=== PATIENT | male | born 1960 | race Caucasian/White ===

== ENCOUNTER 2023-02-26 08:05 | Outpatient (AMB) | payer BC, SELFPAY ==
--- NOTE | 2023-02-26 08:32 | MHC.OFFWIV ---
Intake Vital Signs 02/26/23 08:34 Height 5 ft 8 in Weight 225 lb BMI 34.2 BP 130/70 Blood Pressure Location Lt brachial Position Sitting Pulse 84 Pulse Source Pulse Oximeter Temp 97.2 F Pulse Oximetry (%) 96 Oxygen Delivery Method Room Air Intake Visit Reasons: EP bronchial asthma [id number] Intake Note: pt is here today for bronchial asthma started saturday Patient Tobacco Use Status: Never used Tobacco Allergies NSAIDS (Non-Steroidal Anti-Inflamma [NSAIDS] Allergy (Unknown, Verified 02/26/23 08:54) UNKNOWN pseudoephedrine [Sudafed] Adverse Reaction (Unknown, Verified 02/26/23 08:54) panic attack From SUDAFED Allergy (Unknown, Uncoded 02/26/23 08:54) ANGIOEDEMA Medication List - Last Reconciled 02/26/23 by Sage Knight MD azithromycin 500 mg PO DAILY 5 days prednisone 5 tabs daily for 3 days, 4 tabs daily for 3 days, 3 tabs daily for 3 days, 2 tabs daily for 3 days, 1 tab daily for 3 days tiotropium bromide 2.5 mcg/actuation (Spiriva Respimat) 2 puffs inhalation DAILY tiotropium bromide (Spiriva with HandiHaler) 1 cap inhalation DAILY Do you need a note to return to daycare/school/sports/work: No HPI EP bronchial asthma [id number] HPI Details Patient presents for a sick visit. Reporting symptoms of sinus congestion, sore throat and difficulty swallowing. Low-grade fever. No family member is sick. No recent travel. Patient reports symptoms of malaise and fatigue. 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 [facility]LY [facility] Medical History BPH (benign prostatic hyperplasia) Chronic neck and back pain Depression Dermatitis Hyperlipidemia Hypertension Surgical History H/O colonoscopy History of fracture of leg Hx of rotator cuff tear Family History Father Hx of CABG Brain tumor Cancer Mother Brain tumor Cancer Brother Stented coronary artery Brother No problems noted. Brother Obesity Maternal Grandmother Unknown family medical history Social History Patient Tobacco Use Status: Never used Tobacco Physical Exam Vital Signs: Last Vital Signs Temp 97.2 F 02/26/23 08:34 Pulse 84 02/26/23 08:34 BP 130/70 02/26/23 08:34 Pulse Ox 96 02/26/23 08:34 Oxygen Delivery Method Room Air 02/26/23 08:34 BMI result Body Mass Index 34.2 Const General: cooperative and healthy appearing Nutritional Appearance: well nourished Orientation/consciousness: patient oriented x3 Limitations: no limitations HEENT Head: Yes normal to inspection Eyes General: appearance normal, both eyes and all related structures Neck Neck: Yes normal visual inspection Chest Chest palpation & inspection: normal palpation of entire chest wall Resp Other: Scattered wheeze. Effort & Inspection: normal respiratory effort Neuro General: patient oriented x3 Assessment & Plan Assessment & Plan (1) Bronchitis: Code(s): J40 - Bronchitis, not specified as acute or chronic Plan: Antibiotics ordered. Increase fluid intake. Tylenol for aches and pains. If symptoms worsen, follow-up here for a recheck. Coding Level of Care Code Est Pt Level 3 (31878) Diagnoses Bronchitis J40
[2023-02-26 08:34] VITALS: BP 130/70; PULSE 84; TEMP 36.2; O2SAT 96; BMI 34.2
== END 2023-02-26 09:03 | disposition home or self-care (01) ==
PROVIDERS: PCP Internal Medicine; Visit Provider Internal Medicine
DX: J40 Bronchitis, not specified as acute or chronic (principal)
CPT/HCPCS: 99213

== ENCOUNTER 2023-06-24 09:47 | Day surgery (SDC) | payer OTHER, SELFPAY ==
[2023-06-24 10:21] VITALS: BMI 35.6
[2023-06-24 10:24] VITALS: BP 132/81; PULSE 76; RESP 16; TEMP 36.1; O2SAT 92
[2023-06-24] MEDS: Lactated Ringers 1,000 ML 50 ML IVCONT (10:26)
[2023-06-24 10:34] LABS: Glucose, Whole Blood 178 mg/dL (60-115)
--- NOTE | 2023-06-24 11:04 | HO.ANESPROP2 ---
HPI - Anesthesia Eval Consult details Narrative: for colonoscopy FORMERLY [facility], [facility] Active Problems Active Problems: All Active Problems Chronic bronchitis (Acute) Bronchitis (Acute) Past Medical History Medical History Traumatic brain injury Hernia Anxiety PTSD (post-traumatic stress disorder) Fibromyalgia Osteoarthritis Pulmonary emboli Diabetes DEISI (obstructive sleep apnea) Myocardial infarct, old BPH (benign prostatic hyperplasia) Depression Dermatitis Hyperlipidemia Chronic neck and back pain Hypertension Family History Family History Father Hx of CABG Brain tumor Cancer Mother Brain tumor Cancer Brother Stented coronary artery Brother No problems noted. Brother Obesity Maternal Grandmother Unknown family medical history Family history of problems with anesthesia: No Surgical History Surgical History Hx of esophagogastroduodenoscopy Hx of left inguinal hernia repair Hx of umbilical hernia repair Hx of cardiac catheterization Hx of appendectomy H/O colonoscopy Hx of rotator cuff tear History of fracture of leg History of Problems with Anesthesia: No Social History Social History Patient Tobacco Use Status: Former Tobacco user Quit Date: 22 yrs ago Tobacco use type: Cigarette Use of substances other than those prescribed or required for medical reasons: Yes Substance Use Frequency: Occasionally Are you DNR?: No Advance Directives: No Advance Directives Information Provided: Yes Meds Allergies Allergy/AdvReac Type Severity Reaction Status Date / Time NSAIDS (Non-Steroidal Allergy Unknown UNKNOWN Verified 06/24/23 10:10 Anti-Inflamma [NSAIDS] pseudoephedrine [Sudafed] AdvReac Unknown panic Verified 06/24/23 10:10 attack From SUDAFED Allergy Unknown ANGIOEDEMA Uncoded 02/26/23 08:54 Active Medications: Current Medications Lactated Ringer's (Lr) 1,000 mls @ 50 mls/hr IVCONT .Q20H REINA Last Admin: 06/24/23 10:26 Dose: 50 mls/hr Sodium Biphosphate/Sodium Phosphate (Sodium Phosphate,[place]-Dibasic 133 Ml Enema) 133 ml MD ONCE PRN PRN Reason: Poor Colonoscopy Prep Results Home Medications ?Medication ?Instructions ?Recorded ?Confirmed ?Last Taken ?Type Jardiance PO DAILY 06/21/23 06/20/23 History atorvastatin 40 mg PO BEDTIME 06/21/23 06/24/23 Unknown History buprenorphine-naloxone 2 mg PO DAILY 06/21/23 06/24/23 Unknown History buspirone 5 mg PO DAILY PRN Anxiety 06/21/23 06/24/23 Unknown History duloxetine 60 mg PO BID 06/21/23 06/24/23 Unknown History famotidine 20 mg PO BID 06/21/23 06/24/23 Unknown History lisinopril 20 mg PO DAILY 06/21/23 06/24/23 06/24/23 07:30 History metformin 500 mg PO BID 06/21/23 06/24/23 Unknown History propranolol PO DAILY 06/21/23 Unknown History testosterone QWEEK 06/21/23 Unknown History albuterol sulfate 90 mcg/actuation 2 puff inhalation Q4-6H PRN 06/24/23 06/24/23 Unknown History aerosol inhaler Shortness Of Breath Or Wheezing Exam Height,Weight and Vital Signs: Height 5 ft 8 in Weight 106.141 kg Last Vital Signs Temp 97.0 F 06/24/23 10:24 Pulse 76 06/24/23 10:24 Resp 16 06/24/23 10:24 BP 132/81 06/24/23 10:24 Pulse Ox 92 06/24/23 10:24 O2 Del Method Room Air 06/24/23 10:24 Pertinent Lab Results Pertinent Lab Results: Laboratory Tests 06/24/23 10:30 POC Glucose 178 H Airway Mallampati Class: II TM Dist: >3cm Neck ROM: Limited Heart: rrr Lungs: cta Assessment and Plan Assessment Anesthesia Assessment: Anesthesia Plan Discussed and Chart Reviewed Final Anesthetic Review Family History of Problems with Anesthesia: No History of Problems with Anesthesia: No NPO: Yes ASA Class: III Final Preanesthetic Review: No Changes in Pt Med Stat, Meds/Allgs Chart Reviewed, Consent Obtained/Reviewed and Anes Risks/Benef Reviewed Patient Risk: Intermediate Procedure Risk: Low Anesthetic Plan Anesthetic Plan: MAC: Disposition: Standard PACU
--- NOTE | 2023-06-24 11:54 | P.BOP_ITS ---
Brief Operative Note Date of Service: 06/24/23 Pre-op diagnosis: GERD, Screening Post-op diagnosis: other (Gastritis, Hiatal hernia, Diverticulosis) Procedure: EGD with biopsies, Colonoscopy to the cecum Surgeon: Corbin Maharaj MD Anesthesia: MAC Was an Cryptographic Machine Operator used for this Procedure?: No Estimated blood loss (mL): 2.0 Pathology: other (A. Gastric antrum) Condition: stable Disposition: PACU
[2023-06-24 11:55] VITALS: BP 126/77; PULSE 76; RESP 16; TEMP 36.6; O2SAT 100
[2023-06-24 12:10] VITALS: BP 122/71; PULSE 282; RESP 16; TEMP 36.6; O2SAT 97
--- NOTE | 2023-06-24 16:07 | OP_ITS ---
DATE OF SERVICE: 06/24/2023 SURGEON: Corbin Maharaj MD INDICATIONS: The patient presents for evaluation of chronic gastroesophageal reflux and colorectal cancer screening. Full consent has been obtained from him for this, including risks of bleeding and perforation. PREOPERATIVE DIAGNOSIS: POSTOPERATIVE DIAGNOSIS: PROCEDURE PERFORMED: ESTIMATED BLOOD LOSS: COMPLICATIONS: ANESTHESIA: Monitored anesthesia care. ASSISTANTS: SPECIMENS: PREOPERATIVE DIAGNOSES: Colorectal cancer screening and gastroesophageal reflux. POSTOPERATIVE DIAGNOSES: Colorectal cancer screening, gastroesophageal reflux, small hiatal hernia, mild gastritis, diverticulosis, and internal hemorrhoids. PROCEDURES PERFORMED: Esophagogastroduodenoscopy with biopsies, and colonoscopy to the cecum. DESCRIPTION OF PROCEDURE: The patient was placed in the left lateral decubitus position. The Olympus video gastroscope was passed in the posterior oropharynx and upper esophagus under direct vision. The scope was passed slowly into the distal esophagus. The gastroesophageal junction appeared at 35 cm. There was no sign of any esophagitis, [place] esophagus, nor mass. The scope entered the stomach. There was a small hiatal hernia. The scope was advanced to pylorus and the duodenum was cannulated to the descending portion. The duodenum including the bulb appeared normal without mass or ulceration. The scope was withdrawn back to the stomach. The gastric antrum had some mild areas of a chronic gastritis with some erythema, edema, and some minimal friability. There was no erosions or ulceration. There was good peristalsis. The scope was retroflexed visualizing the proximal stomach carefully, which appeared normal, without any sign of mass or ulceration. The scope was straightened. Biopsies were obtained from the gastric antrum. The scope was withdrawn back in the esophagus. The esophageal mucosa appeared normal. The scope was withdrawn from the patient. He was turned around for the colonoscopy. The digital rectal exam revealed no abnormalities. The Olympus video pediatric colonoscope was then entered into the rectum and advanced easily to the cecum. Once in the cecum, I did identify a normal-appearing cecal pouch with appendiceal orifice and a normal-appearing ileocecal valve. The entire cecum was well visualized and appeared normal. There was transillumination of light deep in the right lower quadrant. The scope was slowly withdrawn assessing all mucosal surfaces carefully. Preparation was excellent. I did not visualize any sign of polyps, colitis, nor angiodysplasia. There was a mild amount of sigmoid diverticulosis. In the rectum, the scope was retroflexed visualizing internal hemorrhoids, but no other pathology. The rectal mucosa appeared normal. The scope was straightened and withdrawn from the patient. He tolerated both procedures well and was returned to the recovery area in stable condition. IMPRESSION: 1. Small hiatal hernia. 2. Mild gastritis. 3. Diverticulosis. 4. Internal hemorrhoids. PLAN: The results of the biopsy will be checked. He was advised to continue his current regimen of famotidine twice a day as he does report that is working well for his reflux. He should have a repeat colonoscopy for screening in 10 years. He would otherwise see me again on a p.r.n. basis. MD PRATEEK Richards/CURTIS / [phone]
== END 2023-06-24 11:40 | disposition home or self-care (01) ==
PROVIDERS: Visit Provider Internal Medicine
PROC: (CPT 45378; principal; 2023-06-24 12:10)
DX: Z12.11 Encounter for screening for malignant neoplasm of colon (principal); K57.30 Diverticulosis of large intestine without perforation or abscess without bleeding; K64.8 Other hemorrhoids; K21.9 Gastro-esophageal reflux disease without esophagitis; K29.60 Other gastritis without bleeding; K44.9 Diaphragmatic hernia without obstruction or gangrene; I25.2 Old myocardial infarction; I10 Essential (primary) hypertension; G47.33 Obstructive sleep apnea (adult) (pediatric); J45.909 Unspecified asthma, uncomplicated; M79.7 Fibromyalgia; E11.9 Type 2 diabetes mellitus without complications; F41.9 Anxiety disorder, unspecified; F43.10 Post-traumatic stress disorder, unspecified; Z79.84 Long term (current) use of oral hypoglycemic drugs; Z79.899 Other long term (current) drug therapy; Z88.8 Allergy status to other drugs, medicaments and biological substances; Z87.891 Personal history of nicotine dependence
CPT/HCPCS: 45378; 43239; 82947; 88305; 88313; 88342; J2405; J2704; J3010

== ENCOUNTER 2023-07-30 08:12 | Outpatient (AMB) | payer BC, SELFPAY ==
[2023-07-30 08:46] VITALS: BP 122/72; PULSE 90; O2SAT 93
--- NOTE | 2023-07-30 08:46 | AM.OFFWIN_ITS ---
Intake Vital Signs 07/30/23 08:46 Height 5 ft 8 in BP 122/72 Blood Pressure Location Rt brachial Position Sitting Pulse 90 Pulse Source Pulse Oximeter Pulse Oximetry (%) 93 Oxygen Delivery Method Room Air Intake Visit Reasons: EP lft elbow pain loss of hand strength Intake Note: pt is here for left elbow pain with loss of hand strength for 1 month Patient Tobacco Use Status: Former Tobacco user Quit Date: 22 yrs ago Allergies NSAIDS (Non-Steroidal Anti-Inflamma [NSAIDS] Allergy (Unknown, Verified 07/30/23 08:47) UNKNOWN pseudoephedrine [Sudafed] Adverse Reaction (Unknown, Verified 07/30/23 08:47) panic attack From SUDAFED Allergy (Unknown, Uncoded 02/26/23 08:54) ANGIOEDEMA Do you need a note to return to daycare/school/sports/work: No HPI HPI Comments History of Present Illness Details This is a 62-year-old male with a past medical history of flv-sbauikw-fptjwjdqt diabetes, hypertension, low testosterone, depression and hyperlipidemia presenting for evaluation of left elbow pain. Patient states he was walking his dog 1 month ago and the dog charged suddenly on his leash, pulling the patient with his left arm. Patient states he has had pain in his left lateral elbow since that time and now has decreased strength when picking up items with his left hand. Of note, patient is left-hand dominant. Patient has been taking ibuprofen once daily without relief of his symptoms. Patient denies having any left shoulder pain or left wrist pain. FORMERLY [facility], [facility] Medical History Traumatic brain injury Hernia Anxiety PTSD (post-traumatic stress disorder) Fibromyalgia Osteoarthritis Pulmonary emboli Diabetes DEISI (obstructive sleep apnea) Myocardial infarct, old BPH (benign prostatic hyperplasia) Depression Dermatitis Hyperlipidemia Chronic neck and back pain Hypertension Surgical History Hx of esophagogastroduodenoscopy Hx of left inguinal hernia repair Hx of umbilical hernia repair Hx of cardiac catheterization Hx of appendectomy H/O colonoscopy Hx of rotator cuff tear History of fracture of leg Family History Father Hx of CABG Brain tumor Cancer Mother Brain tumor Cancer Brother Stented coronary artery Brother No problems noted. Brother Obesity Maternal Grandmother Unknown family medical history Social History Patient Tobacco Use Status: Former Tobacco user Tobacco use type: Cigarette Review of Systems Const All systems reviewed & are unremarkable except as noted in HPI and below ENT Reports no additional complaints Card Reports no additional complaints Resp Reports no additional complaints GI Reports no additional complaints Reports no additional complaints Musc Details: left lateral elbow pain Skin/Breast Reports system reviewed and no additional complaints, except as documented Neuro Reports as per HPI Psych Reports no additional complaints Physical Exam Vital Signs: Last Vital Signs Pulse 90 07/30/23 08:46 BP 122/72 07/30/23 08:46 Pulse Ox 93 07/30/23 08:46 Oxygen Delivery Method Room Air 07/30/23 08:46 Const General: cooperative, healthy appearing, comfortable, no acute distress, well developed, alert and awake Nutritional Appearance: overweight Orientation/consciousness: patient oriented x3 Limitations: no limitations Skin General skin exam: no rashes or lesions noted Neuro General: patient oriented x3 Extrem Other: There is pain to palpation of the left lateral epicondyle and 2 cm distal of the left lateral epicondyle. Passive ROM left olecranon is intact, no pain to palpation of the distal radius or ulna. Electronic Component Processor strength is equal bilaterally, painter ordnance strength in the left hand elicits pain in the left proximal forearm. General: Yes normal to inspection Psych Appearance: grossly normal Mental Status: mental status grossly normal Insight: Good insight present (Psych) Judgement: Good judgement present (Psych) Assessment & Plan Assessment & Plan (1) Left lateral epicondylitis: Comment: Patient's history coupled with his examination is consistent with a left lateral epicondylitis. No further imaging is warranted at this time. Code(s): M77.12 - Lateral epicondylitis, left elbow Plan: Naprosyn twice daily for the next 7-10 days (patient has listed NSAID allergy, however has been taking ibuprofen daily for the past 3 weeks); patient instructed to obtain a counterforce brace (tennis elbow strap) and wear daily for the next 2-3 weeks. Medications: New naproxen (Naprosyn) 500 mg PO BID 20 tabs 0RF Coding Level of Care Code Est Pt Level 3 (64989) Diagnoses Left lateral epicondylitis M77.12 Time Spent (min) 20
== END 2023-07-30 09:29 | disposition home or self-care (01) ==
PROVIDERS: Visit Provider Physician Assistant
DX: M77.12 Lateral epicondylitis, left elbow (principal)
CPT/HCPCS: 99213

== ENCOUNTER 2025-02-09 07:57 | Emergency (ER) | payer OTHER, SELFPAY ==
--- NOTE | ~2025-02-09 | XR_ITS ---
EXAMINATION: XR WRIST 3 OR MORE VIEWS LEFT, XR HAND 1-2 VIEWS LEFT HISTORY: FALL, WRIST INJURY COMPARISON: There are no prior studies available for comparison. FINDINGS: Seven views of the left hand and wrist, including a scaphoid view of the wrist are submitted. Osseous mineralization is normal. There are chronic fracture deformities of the 5th metacarpal and distal ulna. There is no acute fracture or dislocation. There is mild degenerative change of the MCP joint of the middle finger. The soft tissues are unremarkable. XR/XR wrist LT min 3V IMPRESSION: No evidence of acute fracture of the left hand or wrist. Electronically signed by: Corbin Walker MD 02/09/2025 08:42 AM EFRAÍN
--- NOTE | ~2025-02-09 | XR_ITS ---
EXAMINATION: XR WRIST 3 OR MORE VIEWS LEFT, XR HAND 1-2 VIEWS LEFT HISTORY: FALL, WRIST INJURY COMPARISON: There are no prior studies available for comparison. FINDINGS: Seven views of the left hand and wrist, including a scaphoid view of the wrist are submitted. Osseous mineralization is normal. There are chronic fracture deformities of the 5th metacarpal and distal ulna. There is no acute fracture or dislocation. There is mild degenerative change of the MCP joint of the middle finger. The soft tissues are unremarkable. XR/XR hand LT 2V IMPRESSION: No evidence of acute fracture of the left hand or wrist. Electronically signed by: Corbin Walker MD 02/09/2025 08:42 AM EFRAÍN
[2025-02-09 08:16] VITALS: BP 143/76; PULSE 99; RESP 18; TEMP 36.6; O2SAT 95; BMI 29.6
--- OUTSIDE RECORDS SUMMARY | 2025-02-09 08:45 | XMS_ITS | Patient Health Record ---
[facility] Address [address] [place] [address] Care Team Providers Care Surgical Garment Inspector Name Role Phone Daniel Avelar MD Primary Care Provider Carlito Richey Unavailable [phone] Allergies Allergen (clinical drug ingredient) Drug/Non Drug Allergy documented on EMR Reaction Allergy Type Onset Date Status ibuprofen Advil Unknown Drug Allergy Active Sudafed Unknown Drug Allergy Active ibuprofen Ibuprofen Unknown Drug Allergy Active Reason For Referral No Information Medications Medication SIG (Take, Route, Fr equency, Duration) Notes Start Date End Date Status Lisinopril 5 MG 0.5 tablet Orally On ce a day; Duration: 30 day(s) Active Keflex 500 500 MG 1 capsule Orally kyle ry 12 hrs; Duration: 10 day(s) 10/03/2011 Active PARoxetine HCl 20 MG 1 tablet in the mor matthew Orally Once a day; Duration: 30 day(s) Active Protonix 20 MG 2 tablets Orally Twi ce a day; Duration: 30 day(s) Active Fexofenadine HCl 180 MG 1 tablet Orally Once a day; Duration: 30 day(s) Active Savella 100 MG 1 tablet Orally Twic e a day; Duration: 30 day(s) Active Simvastatin 20 MG 1 tablet every eveni ng Orally Once a day; Duration: 30 day(s) Active Gabapentin 300 MG 1 capsule Orally Thr ee times a day; Duration: 30 day(s) Activ e Coumadin 1 MG 1 tablet Orally Once a day; Duration: 30 day(s) Active Problems Problem Type SNOMED Code ICD Code Onset Dates Problem Status W/U Status Risk Notes Problem Pain in limb (73354638) Pain in Limb (729.5) Active confirmed Problem Paronychia (70509742) Paronychia (681.11) Active confirmed Problem Abscess /Cellulitis (682.7) Active confirmed Problem Ingrowing nail (488163427) Ingrowing Nail (703.0) Active confirmed Plan Of Treatment Pending Test Test Name Order Date 34018- I&D ABSCESS-COMPLICATED,MULTI 09/2011 Insurance Providers Payer Name Payer Address Payer Phone Subscriber Number Group Number Insured Name Patient Relationship to Insured Coverage Start Date Coverage End Date [facility] [address] [facility] [id number] Ha Burns Self - patient is the insured Medical (General) History Medical History History ICD Code measles high blood pressure fibromyalgia chicken pox broken bones back, hip, knee pain Anxiety disorder Surgical History Surgery Date(Month/Year) appendectomy heart surgery unspecified hernia leg surgery
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
--- NOTE | 2025-02-09 09:07 | ED.EXTPRO ---
HPI - Extremity Problem General Chief complaint: Extremity Injury, Upper Stated complaint: Fall - hand injury Time Seen by Provider: 02/09/25 08:39 Source: patient and RN notes reviewed Mode of arrival: ambulatory Limitations: no limitations History of Present Illness ED Provider: Amy Arroyo PA-C HPI Narrative: This is a 64-year-old male, With a past medical history of GERD, hypertension, hyperlipidemia, who presents emergency department with concerns of left hand and wrist pain status post slipping on ice 2 days ago. Patient reports that he accidentally slipped in fell with his left hand placed outwards, and he felt as though his left 3rd digit bent backwards. He states that he immediately had pain. Denies hitting his head or loss of consciousness. He is not on anticoagulation. He has been taking ibuprofen for his pain which has provided him with some relief. 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 No numbness or tingling. No other complaints or concerns at this time. MD Complaint: extremity pain and extremity swelling Onset (ago): day(s) Pain Consistency: constant Location: left and upper extremity Quality: aching Radiation: none Relieving factors: nothing Exacerbating factors: range of motion Associated symptoms: denies other symptoms Related Data Home Medications ?Medication ?Instructions ?Recorded ?Confirmed Jardiance PO DAILY 06/21/23 atorvastatin 40 mg PO BEDTIME 06/21/23 06/24/23 buprenorphine-naloxone 2 mg PO DAILY 06/21/23 06/24/23 buspirone 5 mg PO DAILY PRN Anxiety 06/21/23 06/24/23 duloxetine 60 mg PO BID 06/21/23 06/24/23 famotidine 20 mg PO BID 06/21/23 06/24/23 lisinopril 20 mg PO DAILY 06/21/23 06/24/23 metformin 500 mg PO BID 06/21/23 06/24/23 propranolol PO DAILY 06/21/23 testosterone QWEEK 06/21/23 albuterol sulfate 90 mcg/actuation 2 puff inhalation Q4-6H PRN 06/24/23 06/24/23 aerosol inhaler Shortness Of Breath Or Wheezing Previous Rx's ?Medication ?Instructions ?Recorded naproxen 500 mg tablet (Naprosyn) 500 mg PO BID #20 tabs 07/30/23 acetaminophen 500 mg tablet 1,000 mg (2 x 500 mg) PO Q8H PRN 02/09/25 (Tylenol Extra Strength) pain #30 tabs ibuprofen 600 mg tablet 600 mg PO Q6H PRN pain #30 tabs 02/09/25 Allergies Allergy/AdvReac Type Severity Reaction Status Date / Time NSAIDS (Non-Steroidal Allergy Unknown UNKNOWN Verified 02/09/25 08:19 Anti-Inflamma (NSAIDS) pseudoephedrine (Sudafed) AdvReac Unknown panic Verified 02/09/25 08:19 attack From SUDAFED Allergy Unknown ANGIOEDEMA Uncoded 02/09/25 08:19 Review of Systems Review of Systems: Constitutional : No Fever, No Chills ENT/Mouth : No sore throat, No Rhinorrhea Eyes: No Eye Pain, No Swelling, No Redness Cardiovascular : No Chest Pain, No SOB Respiratory : No Cough, No Sputum Gastrointestinal : No Nausea, No Vomiting, No Diarrhea, No abdominal Pain Genitourinary : No Dysuria, No Hematuria Musculoskeletal :+ joint pain, No Myalgias, +Joint Swelling Skin : No Skin Lesions Neuro : No Weakness, No Numbness, No Headache All other systems reviewed and are negative Yes all other systems are reviewed and are negative Constitutional: Constitutional: Reports as per [facility] Past Medical History Medical History Traumatic brain injury Hernia Anxiety PTSD (post-traumatic stress disorder) Fibromyalgia Osteoarthritis Pulmonary emboli Diabetes DEISI (obstructive sleep apnea) Myocardial infarct, old BPH (benign prostatic hyperplasia) Depression Dermatitis Hyperlipidemia Chronic neck and back pain Hypertension Surgical History Hx of esophagogastroduodenoscopy Hx of left inguinal hernia repair Hx of umbilical hernia repair Hx of cardiac catheterization Hx of appendectomy H/O colonoscopy Hx of rotator cuff tear History of fracture of leg Family History Family History Father Hx of CABG Brain tumor Cancer Mother Brain tumor Cancer Brother Stented coronary artery Brother No problems noted. Brother Obesity Maternal Grandmother Unknown family medical history Social History Social History Patient Tobacco Use Status: Former Tobacco user Tobacco use type: Cigarette Advance Directives: No Advance Directives Information Provided: No Physical Exam Vital Signs: Vital Signs: Last Vital Signs Temp 98 F 02/09/25 08:16 Pulse 99 02/09/25 08:16 Resp 18 02/09/25 08:16 BP 143/76 H 02/09/25 08:16 Pulse Ox 95 02/09/25 08:16 O2 Del Method Room Air 02/09/25 08:16 BMI result Body Mass Index 29.6 Const: General: cooperative, comfortable and no acute distress Orientation/consciousness: patient oriented x3 Limitations: no limitations HEENT: Head: Yes normal to inspection, Yes normocephalic and Yes atraumatic Ears: hearing grossly normal bilaterally General nose exam: Normal external nose present Face and sinus: Yes normal facial exam Mouth: Normal oral and palatal mucosa present, oropharynx normal and moist mucous membranes Throat: Yes posterior oropharynx normal Eyes: General: appearance normal, both eyes and all related structures Eyelids: Yes eyelids normal Conjunctivae: conjunctivae normal Sclerae: sclerae normal Pupils: Equal, round and reactive pupils present EOM: EOMs intact bilaterally Neck: Neck: Yes normal visual inspection, Yes full ROM and Yes no lymphadenopathy Lymphatic: no lymphadenopathy noted Chest: Chest palpation & inspection: normal inspection of the chest Resp: Effort & Inspection: normal respiratory effort and able to speak in complete sentences Auscultation: clear to auscultation bilaterally, no crackles, no rales, no rhonchi and no wheezes Cardio: Rate: regular rate Rhythm: regular rhythm Heart sounds: S1 normal heart sound present and S2 normal heart sound present GI: Inspection: Yes normal to inspection Skin: General skin exam: no rashes or lesions noted Trauma: no lacerations or abrasions Wounds: no wounds Neuro: General: patient oriented x3 and moves all extremities Cranial nerves: Yes Equal, round and reactive pupils present Extrem: Other: left hand with moderate edema noted overlying the 3rd distal metacarpal bone. no open wounds or lacerations. Tender to palpation in this region. Patient also has mild tenderness palpation along the distal ulna and radius, able to flex and extend as well as deviate the wrist without difficulties. Strong radial pulse. Capillary refill less than 2 seconds. Able to oppose thumb to all digits. Able to make a fist. General: Yes normal to inspection Right upper extremity: normal to inspection Left upper extremity: normal to inspection Right lower extremity: normal to inspection Left lower extremity: normal to inspection Medical Decision Making Medical Decision Making MDM Narrative: This is a 64-year-old male who presents emergency department with concerns of left wrist and hand pain status post slip and fall on ice 2 days ago. On arrival, blood pressure mildly elevated 143/76, all other vital signs within normal limits. No head strike or LOC. He is not on anticoagulation. X-ray reveal only chronic degenerative changes, no acute fractures. Patient has been taking ibuprofen for her symptoms, will treat with ibuprofen and Tylenol at home. Patient given a dose of Toradol in the department today. He also was given a wrist splint for comfort. He will follow-up with the orthopedic team, advised to call to make an appointment. Given strict return precautions, patient stable for discharge. Differential Diagnosis Differential Diagnoses: The differential diagnosis associated with the presentation includes Fracture, contusion, sprain, strain Radiology Impression Discussion of test interpretation with radiology: I have reviewed the radiologist's reading. Radiologist Impression: Reason for Exam: FALL, WRIST INJURY EXAMINATION: XR WRIST 3 OR MORE VIEWS LEFT, XR HAND 1-2 VIEWS LEFT HISTORY: FALL, WRIST INJURY COMPARISON: There are no prior studies available for comparison. FINDINGS: Seven views of the left hand and wrist, including a scaphoid view of the wrist are submitted. Osseous mineralization is normal. There are chronic fracture deformities of the 5th metacarpal and distal ulna. There is no acute fracture or dislocation. There is mild degenerative change of the MCP joint of the middle finger. The soft tissues are unremarkable. XR/XR wrist LT min 3V IMPRESSION: No evidence of acute fracture of the left hand or wrist. Electronically signed by: Corbin Walker MD 02/09/2025 08:42 AM EST Dictated By: Corbin Walker MD EXAMINATION: XR WRIST 3 OR MORE VIEWS LEFT, XR HAND 1-2 VIEWS LEFT HISTORY: FALL, WRIST INJURY COMPARISON: There are no prior studies available for comparison. FINDINGS: Seven views of the left hand and wrist, including a scaphoid view of the wrist are submitted. Osseous mineralization is normal. There are chronic fracture deformities of the 5th metacarpal and distal ulna. There is no acute fracture or dislocation. There is mild degenerative change of the MCP joint of the middle finger. The soft tissues are unremarkable. XR/XR hand LT 2V IMPRESSION: No evidence of acute fracture of the left hand or wrist. Electronically signed by: Corbin Walker MD 02/09/2025 08:42 AM EST Dictated By: Corbin Walker MD Discharge Plan Discharge Clinical Impression: Sprain and strain of wrist, Hand sprain Patient Disposition: Home, Self-Care Instructions: Wrist Injury (ED), Wrist Sprain (ED), Cold Compress or Soak (ED) Additional Instructions: You were seen in the emergency department after injuring your left hand and wrist. Thankfully your x-rays do not show any new broken bones however you do have evidence of previous injuries in your left hand and wrist. Please rest, ice, and elevate your left hand and wrist for pain relief. Alternate between ibuprofen and or Tylenol. Take ibuprofen 600 mg every 6 hours, 2 hours later take Tylenol a 1000 mg, take this every 8 hours. Alternating between both of these medications can provide you with significant pain relief. You were given a pain medication called Toradol, this is similar to ibuprofen therefore do not take ibuprofen until 6:00 p.m. kalin. I am also providing you with a wrist splint for comfort. If this causes more pain, remove. Gentle stretching, and ice will also provide you with relief. Please follow-up with the orthopedics pediatric physician, call This week to make an appointment. If any new or worsening symptoms occur including but not limited to worsening pain, loss of sensation in your hand and wrist, changes in color of your hand and wrist, please seek emergent care. Prescriptions: New ibuprofen 600 mg tablet 600 mg PO Q6H PRN (Reason: pain) Qty: 30 0RF acetaminophen [Tylenol Extra Strength] 500 mg tablet 1,000 mg PO Q8H PRN (Reason: pain) Qty: 30 0RF No Action Jardiance PO DAILY atorvastatin 40 mg PO BEDTIME buprenorphine-naloxone 2 mg PO DAILY buspirone 5 mg PO DAILY PRN (Reason: Anxiety) duloxetine 60 mg PO BID famotidine 20 mg PO BID lisinopril 20 mg PO DAILY metformin 500 mg PO BID propranolol PO DAILY testosterone QWEEK albuterol sulfate 90 mcg/actuation Hfa Aerosol Inhaler 2 puff INHALATION Q4-6H PRN (Reason: Shortness Of Breath Or Wheezing) naproxen [Naprosyn] 500 mg tablet 500 mg PO BID Qty: 20 0RF Referrals: [facility] [place] Orthopedic Surgeons [Provider Group] Print Language: Greek
[2025-02-09 10:36] VITALS: BP 107/62; PULSE 84; RESP 16; TEMP 36.6; O2SAT 95
== END 2025-02-09 10:39 | disposition home or self-care (01) ==
PROVIDERS: Emergency Provider Emergency Medicine Emergency Medical Services
DX: S63.502A Unspecified sprain of left wrist, initial encounter (principal); S63.92XA Sprain of unspecified part of left wrist and hand, initial encounter; S66.912A Strain of unspecified muscle, fascia and tendon at wrist and hand level, left hand, initial encounter; W19.XXXA Unspecified fall, initial encounter; Y93.29 Activity, other involving ice and snow; Y92.9 Unspecified place or not applicable; M79.642 Pain in left hand; M25.532 Pain in left wrist
CPT/HCPCS: 73110; 73120; 96372; 99284; J1885

== ENCOUNTER → 2025-02-09 08:35 | Outpatient (BNV) | payer OTHER, SELFPAY | PROVIDERS: Visit Provider Radiology Diagnostic Radiology | DX: S69.92XA Unspecified injury of left wrist, hand and finger(s), initial encounter (principal); Z04.3 Encounter for examination and observation following other accident | CPT/HCPCS: 73110; 73120 ==

== ENCOUNTER 2025-02-24 08:19 | Outpatient (REF) | payer OTHER, SELFPAY ==
--- NOTE | ~2025-02-24 | XR_ITS ---
EXAMINATION: XR WRIST NAVICULAR LEFT HISTORY: M25.532 - Pain in left wrist COMPARISON: There are comparison is made with the prior examination dated 02/09/2025. FINDINGS: Four views of the left wrist are submitted. Osseous mineralization is normal. There is an old healed fracture deformity of the 5th metacarpal. Well-corticated osseous densities adjacent to the ulnar styloid are also likely the result of old trauma. No acute fracture or dislocation is seen. Again seen is degenerative change of the 3rd MCP joint. The soft tissues are unremarkable. XR/XR wrist LT w scaphoid IMPRESSION: No evidence of acute fracture of the left wrist. Electronically signed by: Corbin Walker MD 02/24/2025 08:53 AM EST
--- OUTSIDE RECORDS SUMMARY | 2025-02-24 08:23 | XMS_ITS | Patient Health Record ---
[facility] Address [address] [place] [address] Care Team Providers Care Rolfer Name Role Phone Daniel Avelar MD Primary Care Provider Carlito Richey Unavailable [phone] Allergies Allergen (clinical drug ingredient) Drug/Non Drug [...] Status Risk Notes Problem Pain in limb (99261413) Pain in Limb (729.5) Active confirmed Problem Paronychia (79570659) Paronychia (681.11) Active confirmed Problem Abscess /Cellulitis (682.7) Active confirmed Problem Ingrowing nail (224863203) Ingrowing Nail (703.0) Active confirmed Plan Of Treatment Pending Test Test Name Order Date 75370- I&D ABSCESS-COMPLICATED,MULTI 09/2011 Insurance Providers Payer Name Payer Address Payer Phone Subscriber Number Group Number Insured Name Patient Relationship to Insured Coverage Start Date Coverage End Date [facility] [address] [facility] [id number] Ha Burns Self - patient is the insured Medical (General) History Medical History History ICD Code measles high blood pressure fibromyalgia chicken pox broken bones back, hip, knee pain Anxiety disorder Surgical History Surgery Date(Month/Year) appendectomy heart surgery unspecified hernia leg surgery
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
== END 2025-02-24 08:20 | disposition home or self-care (01) ==
LOC: HO.HOSX 08:19
DX: S62.613A Displaced fracture of proximal phalanx of left middle finger, initial encounter for closed fracture (principal); W00.9XXA Unspecified fall due to ice and snow, initial encounter; Y92.9 Unspecified place or not applicable; Y93.9 Activity, unspecified; Y99.9 Unspecified external cause status
CPT/HCPCS: 73110

== ENCOUNTER 2025-02-24 08:35 | Outpatient (AMB) | payer OTHER, SELFPAY ==
--- NOTE | 2025-02-24 08:50 | MHC.OFFVIS ---
Vital Signs 02/24/25 08:51 Height 5 ft 8 in Weight 195 lb BMI 29.6 Intake Visit Reasons: ED Follow Up - Left Wrist Sprain s/p Fall 02/06/25 Intake Note: Ha is a 64 year old left hand dominant male who presents today for an ED Follow Up visit with complaints of Left Hand and Wrist Pain s/p slip and fall on ice 02/07/25. Patient reports that when he fell and landed on the Left Hand the Left 3rd Digit hyperextended, he had an immediate onset of pain. Two days after the injury he was seen at [facility] where x-rays were taken and showed no new fractures but old fracture deformities from previous injuries. He was placed in a Velcro wrist brace. Today, patient reports he cannot close his hand . He complains of left middle finger locking and catching, since the injury. He denies numbness or tingling. He is taking taking Ibuprofen and Acetaminophen with relief. He reports multiple left hand fractures, last one about 15 years ago. Allergies pseudoephedrine (Sudafed) Adverse Reaction (Unknown, Verified 02/09/25 08:19) panic attack From SUDAFED Allergy (Unknown, Uncoded 02/09/25 08:19) ANGIOEDEMA HPI HPI ED Follow Up - Left Wrist Sprain s/p Fall 02/06/25: Details: Ha is a 64 year old left hand dominant male who presents today for an ED Follow Up visit with complaints of Left Hand and Wrist Pain s/p slip and fall on ice 02/07/25. Patient reports that when he fell and landed on the Left Hand the Left 3rd Digit hyperextended, he had an immediate onset of pain. Two days after the injury he was seen at [facility] where x-rays were taken and showed no new fractures but old fracture deformities from previous injuries. He was placed in a Velcro wrist brace. Today, patient reports he cannot close his hand . He complains of left middle finger difficulty with fully closing, since the injury. Patient reports that his pain is primarily along the radial aspect of the MCP joint of the left middle finger. He denies numbness or tingling. He is taking taking Ibuprofen and Acetaminophen with relief. He reports multiple left hand fractures, last one about 15 years ago. [facility] Medical History Traumatic brain injury Hernia Anxiety PTSD (post-traumatic stress disorder) Fibromyalgia Osteoarthritis Pulmonary emboli Diabetes DEISI (obstructive sleep apnea) Myocardial infarct, old BPH (benign prostatic hyperplasia) Depression Dermatitis Hyperlipidemia Chronic neck and back pain Hypertension Surgical History Hx of esophagogastroduodenoscopy Hx of left inguinal hernia repair Hx of umbilical hernia repair Hx of cardiac catheterization Hx of appendectomy H/O colonoscopy Hx of rotator cuff tear History of fracture of leg Family History Father Hx of CABG Brain tumor Cancer Mother Brain tumor Cancer Brother Stented coronary artery Brother No problems noted. 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 Neuro: Normal sensation of the tips of all digits of the left hand at this time Vascular: Cap refill brisk Pain: Minimal tenderness to palpation about radial aspect of left middle finger MCP joint Some discomfort with range of motion of the MCP joint of the left middle finger ROM: Patient was able to make a closed fist and extend all digits of the left hand fully Skin: No lacerations or abrasions. General: No ecchymosis, erythema, or evidence of infection. Psych: Appears grossly normal Affect normal Attitude cooperative Results Reviewed Results Reviewed: X-rays obtained in the office today and independently reviewed by me, Peter Maloney PA-C, demonstrate several old posttraumatic deformities of the left hand wrist, namely in the 5th metacarpal and ulnar styloid. There is also a small avulsion noted of the most proximal aspect of the proximal phalanx of the left middle finger, this may represent acute avulsion injury versus chronic abnormality.. Assessment & Plan Assessment & Plan (1) Avulsion fracture of proximal phalanx of finger: Code(s): S62.619A - Displaced fracture of proximal phalanx of unspecified finger, initial encounter for closed fracture Category: Medical Plan 1. RCL injury with likely avulsion fracture of MCP of left middle finger Date of injury 02/08/2025 Patient was educated about this condition Patient was educated about the typical treatment and recovery course Patient was educated on gloria taping the middle and ring fingers to prevent radial ulnar deviation of the left middle finger while active Patient may remove while at rest 5 lb weight limit in left hand until follow-up Patient understands this and is amenable to this plan Follow-up in 3-4 weeks with repeat x-rays Orders: Orders XR wrist LT w scaphoid Today M25.532 - Pain in left wrist Coding Level of Care Code New Pt Level 3 (34686) Diagnoses Avulsion fracture of proximal phalanx of finger S62.619A
[2025-02-24 08:51] VITALS: BMI 29.6
== END 2025-02-24 09:14 | disposition home or self-care (01) ==
LOC: HO.HOS 08:35
DX: S62.613A Displaced fracture of proximal phalanx of left middle finger, initial encounter for closed fracture (principal)
CPT/HCPCS: 99203

== ENCOUNTER → 2025-02-24 08:38 | Outpatient (BNV) | payer OTHER, SELFPAY | PROVIDERS: Visit Provider Radiology Diagnostic Radiology | DX: M25.532 Pain in left wrist (principal) | CPT/HCPCS: 73110 ==